=== PATIENT | male | born 1935 | race Caucasian/White ===

== ENCOUNTER 2016-11-08 08:38 | Emergency (ER) | payer MEDICARE ==
[~2016-11-08 08:38] MED LIST: DARVOCET-N 1001 TAB PO; PRILOSEC PO; SKELAXIN PO
[2016-11-08] MEDS ORDERED: ACIDOPHILUS LA1 EACH PO (08:46)
[2016-11-08] MEDS ORDERED: LIPITOR20 MG PO (08:46)
[2016-11-08] MEDS ORDERED: LISINOPRIL20 MG PO (08:47)
[2016-11-08] MEDS ORDERED: PROTONIX PO (08:47)
[2016-11-08] MEDS ORDERED: SERTRALINE HCL25 M2 PO (08:47)
[2016-11-08] MEDS ORDERED: TYL325 PO (08:48)
== END 2016-11-08 09:28 | disposition home or self-care (01) ==
LOC: SED 08:38
DX: K06.8 Other specified disorders of gingiva and edentulous alveolar ridge (principal); Z86.73 Personal history of transient ischemic attack (TIA), and cerebral infarction without residual deficits; F03.90 Unspecified dementia, unspecified severity, without behavioral disturbance, psychotic disturbance, mood disturbance, and anxiety; Z88.1 Allergy status to other antibiotic agents
CPT/HCPCS: 99283